=== PATIENT | male | born 1955 | race American Indian/Alaskan Native ===

== ENCOUNTER 2019-01-20 15:22 | Emergency (ER) | payer SELFPAY ==
--- NOTE | 2019-01-20 15:32 | Emergency Department Report ---
Blank Doc - Documentation Documentation: 63-year-old male that presents with URI symptoms. This initial assessment/diagnostic orders/clinical plan/treatment(s) is/are subject to change based on patient's health status, clinical progression and re- assessment by fellow clinical providers in the ED. Further treatment and workup at subsequent clinical providers discretion. Patient/guardians urged not to elope from the ED as their condition may be serious if not clinically assessed and managed. Initial orders include: 1- Patient sent to [facility] for further evaluation and treatment 2- CXR
[2019-01-20] MEDS ORDERED: IPRATROPIUM 0.02% NEBU 2.5 ML IH ONE (16:21)
[2019-01-20] MEDS ORDERED: LIDOCAINE-MPF (1%) 10 MG/1 ML VIAL 5 ML INFILTRATI ONE (16:21)
[2019-01-20] MEDS ORDERED: dexAMETHasone 4 MG/ML VIAL IM ONE (16:21)
[2019-01-20] MEDS ORDERED: ALBUTEROL 2.5 MG/3 ML NEBU IH ONE (16:21)
[2019-01-20] MEDS ORDERED: methylPREDNISolone Sod Succinate 125 MG/2 ML INJ IV ONE (16:29)
[2019-01-20] MEDS ORDERED: cefTRIAXone/NS 1 GM/50 ML 1 GM/50 ML BAG IV ONE (16:29)
--- NOTE | 2019-01-20 16:33 | XRay Report ---
CHEST 2 VIEWS INDICATION / CLINICAL INFORMATION: cough. COMPARISON: None available. FINDINGS: SUPPORT DEVICES: None. HEART / MEDIASTINUM: No significant abnormality. LUNGS / PLEURA: No significant pulmonary or pleural abnormality. No pneumothorax. ADDITIONAL FINDINGS: No significant additional findings. IMPRESSION: 1. No acute finding. Signer Name: Farhan Casas MD Signed: 01/20/2019 4:29 PM Workstation Name: [id number]
[2019-01-20 16:43] LABS: Hemoglobin 14.2 gm/dl (11.8-15.2); Mean Corpuscular HGB Conc 32 % (32-34); Mean Corpuscular Volume 76 fl (84-94); Platelet Count 198 K/mm3 (140-440); Red Blood Count 5.77 M/mm3 (3.65-5.03); Red Cell Distribution Width 14.2 % (13.2-15.2)
[2019-01-20] MEDS ORDERED: ACETAMINOPHEN 325 MG TAB PO ONE (16:55)
[2019-01-20 16:59] LABS: BUN/Creatinine Ratio 10; Blood Urea Nitrogen 9 mg/dL (9-20); Calcium 8.7 mg/dL (8.4-10.2); Hemolysis Index 3
--- NOTE | 2019-01-20 17:41 | Emergency Department Report ---
- General Chief Complaint: Upper Respiratory Infection Stated Complaint: SEVERE CHEST PAIN/COLD/CHILLS Time Seen by Provider: 01/20/19 15:31 Source: patient Mode of arrival: Ambulatory Limitations: No Limitations - History of Present Illness Initial Comments: Patient is a 63-year-old male presents emergency room with complaints of URI symptoms that began a week ago. He has associated productive cough with white sputum, chills, fever, chest tightness. He denies any sick contacts. He denies any ear pain or sore throat. Patient denies any past medical history or allergies medications. He states he has a nonsmoker. He denies any history of asthma - Related Data Previous Rx's Medication Instructions Recorded Last Taken Type ALBUTEROL Inhaler (OR & NICU) 2 puff IH QID PRN #8.5 gram 01/20/19 Unknown Rx [ProAir HFA Inhaler] Azithromycin [Zithromax TAB] 250 mg PO QDAY 5 Days #6 tablet 01/20/19 Unknown Rx predniSONE [Deltasone] 40 mg PO QDAY 7 Days #14 tab 01/20/19 Unknown Rx Allergies Allergy/AdvReac Type Severity Reaction Status Date / Time No Known Allergies Allergy Unverified 01/20/19 15:25 ED Review of Systems ROS: Stated complaint: SEVERE CHEST PAIN/COLD/CHILLS Other details as noted in HPI Comment: All other systems reviewed and negative ED Past Medical Hx - Past Medical History Previous Medical History?: No - Surgical History Past Surgical History?: No - Social History Smoking Status: Never Smoker Substance Use Type: Alcohol - Medications Home Medications: Home Medications Medication Instructions Recorded Confirmed Last Taken Type ALBUTEROL Inhaler (OR & NICU) 2 puff IH QID PRN #8.5 gram 01/20/19 Unknown Rx [ProAir HFA Inhaler] Azithromycin [Zithromax TAB] 250 mg PO QDAY 5 Days #6 tablet 01/20/19 Unknown Rx predniSONE [Deltasone] 40 mg PO QDAY 7 Days #14 tab 01/20/19 Unknown Rx ED Physical Exam - General Limitations: No Limitations General appearance: alert, in no apparent distress - Head Head exam: Present: atraumatic, normocephalic - Eye Eye exam: Present: normal appearance - ENT ENT exam: Present: mucous membranes moist - Respiratory Respiratory exam: Present: wheezes (mild bilaterally), rhonchi (mild bilaterally), decreased breath sounds (in the bases). Absent: respiratory distress, rales, stridor, chest wall tenderness, accessory muscle use, prolonged expiratory - Cardiovascular Cardiovascular Exam: Present: regular rate, normal rhythm, normal heart sounds. Absent: systolic murmur, diastolic murmur, rubs, gallop - Neurological Exam Neurological exam: Present: alert, oriented X3 - Psychiatric Psychiatric exam: Present: normal affect, normal mood - Skin Skin exam: Present: warm, dry, intact ED Course Vital Signs 01/20/19 01/20/19 01/20/19 15:30 17:06 18:11 Temperature 100.1 F H Pulse Rate 112 H 89 84 Respiratory 18 20 18 Rate Blood Pressure 122/74 Blood Pressure 120/80 [Right] O2 Sat by Pulse 91 95 96 Oximetry ED Medical Decision Making - Lab Data Result diagrams: 01/20/19 16:35 01/20/19 16:35 - Radiology Data Radiology results: report reviewed CHEST 2 VIEWS INDICATION / CLINICAL INFORMATION: cough. COMPARISON: None available. FINDINGS: SUPPORT DEVICES: None. HEART / MEDIASTINUM: No significant abnormality. LUNGS / PLEURA: No significant pulmonary or pleural abnormality. No pneumothorax. ADDITIONAL FINDINGS: No significant additional findings. IMPRESSION: 1. No acute finding. Signer Name: Farhan Casas MD Signed: 01/20/2019 4:29 PM Workstation Name: [id number] Transcribed By: FREDA Dictated By: Farhan Casas MD Electronically Authenticated By: Farhan Casas MD Signed Date/Time: 01/20/19 0853 - Medical Decision Making Patient is a 63-year-old male presents emergency room with complaints of URI symptoms that began a week ago. He has associated productive cough with white sputum, chills, fever, chest tightness. He denies any sick contacts. He denies any ear pain or sore throat. Patient denies any past medical history or allergies medications. He states he has a nonsmoker. He denies any history of asthma. Initial vitals with low-grade temperature, tachycardia and hypoxia. Upon repeat vitals heart rate is normal and oxygen saturation is 96 percent on room air. Labs are stable. On exam patient has mild wheezing and mild rhonchi bilaterally, slightly decreased breath sounds in the bases. Patient given nebulizer treatment, IV Solu-Medrol, IV ceftriaxone. On reexamination patient's breath sounds are significantly improved and wheezing has resolved patient has good air movement. CXR interpreted as No acute finding by radiologist. Patient will be treated for acute bronchitis. Patient given prescription for steroids, albuterol inhaler, azithromycin. advised pt to Please take medication as prescribed. Follow-up with a primary care doctor in the next 2-3 days for reexamination. Increase your water intake over the next several days. Return to the emergency room for any new or worsening symptoms. - Differential Diagnosis PNA, URI, bronchitis, viral syndrome, asthma Critical care attestation.: If time is entered above; I have spent that time in minutes in the direct care of this critically ill patient, excluding procedure time. ED Disposition Clinical Impression: Acute bronchitis Qualifiers: Bronchitis organism: unspecified organism Qualified Code(s): J20.9 - Acute bronchitis, unspecified Disposition: DC-01 TO HOME OR SELFCARE Is pt being admited?: No Does the pt Need Aspirin: No Condition: Stable Instructions: Acute Bronchitis (ED) Additional Instructions: Please take medication as prescribed. Follow-up with a primary care doctor in the next 2-3 days for reexamination. Increase your water intake over the next several days. Return to the emergency room for any new or worsening symptoms. Prescriptions: predniSONE [Deltasone] 40 mg PO QDAY 7 Days #14 tab ALBUTEROL Inhaler (OR & NICU) [ProAir HFA Inhaler] 2 puff IH QID PRN #8.5 gram PRN Reason: Shortness Of Breath Azithromycin [Zithromax TAB] 250 mg PO QDAY 5 Days #6 tablet Referrals: TAN MCKEON MD [Staff Physician] - 2-3 Days FINN HARRIS DO [Staff Physician] - 2-3 Days Time of Disposition: 17:42 Print Language: SAMI
[2019-01-20 18:12] VITALS: BP 120/80
== END 2019-01-20 18:11 | disposition home or self-care (01) ==
LOC: ED 15:22
DX: J20.9 Acute bronchitis, unspecified (principal)
CPT/HCPCS: 36415; 71046; 80048; 85027; 96365; 96375; 99284; J0696; J2930